=== PATIENT | female | born 1955 | race African-American/Black ===

== ENCOUNTER 2021-06-02 07:31 | Inpatient (IN) | payer OTHER ==
[~2021-06-02] VITALS: Ht 162.6 cm; Wt 181.9 kg
[2021-06-02] MEDS ORDERED: FUROSEMIDE 40MG/4ML VIAL IV ONE (08:30)
[2021-06-02 09:15] LABS: BASOPHILS % 0.6 % (0.0-2.0); EOSINOPHILS % 2.5 % (0.0-5.0); HEMATOCRIT. 40.2 % (36.0-48.0); HEMOGLOBIN. 13.3 g/dL (12.0-16.0); MEAN CORPUSCULAR HEMOGLOBIN 27.4 pg (28.0-32.0); MEAN CORPUSCULAR VOLUME 82.7 fL (81.0-99.0); MEAN PLATELET VOLUME 7.1 fl (7.4-10.4); NEUTROPHILS % 60.9 % (40.0-76.0); PLATELET 386 x1000/uL (130-400); RED BLOOD CELL COUNT 4.86 mill/uL (4.2-5.4); RED CELL DISTRIBUTION WIDTH 16.8 % (11.6-14.6)
[2021-06-02 09:21] LABS: CHLORIDE 107 mEq/L (98-107)
[2021-06-02 09:23] LABS: INR 3.4; PARTIAL THROMBOPLASTIN TIME 51.3 sec (23.4-31.0); PROTHROMBIN TIME 32.9 sec (9.6-11.0)
[2021-06-02] MEDS ORDERED: HYDROCODONE/ACETAMINOPHEN 5/325MG TABLET PO ONE (11:00)
[2021-06-02 11:34] LABS: CLARITY URINE CLOUDY (CLEAR); COLOR URINE YELLOW (YELLOW); KETONES URINE NEGATIVE (NEGATIVE); LEUKOCYTE ESTERASE URINE NEGATIVE (NEGATIVE); NITRITE URINE NEGATIVE (NEGATIVE); OCCULT BLOOD URINE 2+ (NEGATIVE); PROTEIN URINE NEGATIVE (NEGATIVE); SPECIFIC GRAVITY URINE 1.024 (1.005-1.030)
[2021-06-02] MEDS ORDERED: IPRATROPIUM/ALBUTEROL 0.5-3(2.5)MG/3ML NEB HHN PRN (13:15)
[2021-06-02] MEDS ORDERED: ACETAMINOPHEN 325MG TABLET PO PRN (13:15)
[2021-06-02] MEDS: FUROSEMIDE 100MG/10ML VIAL IVP SCH (18:15)
[2021-06-02 23:00] VITALS: BP 137/56
[2021-06-03] VITALS: BP 137/56
[2021-06-03] MEDS ORDERED: OMEP20CA14 MT (00:54)
[2021-06-03] MEDS ORDERED: WARF10TA44 MT (00:55)
[2021-06-03] MEDS ORDERED: FURO-151 PO (00:56)
[2021-06-03 04:00] VITALS: BP 128/57
[2021-06-03 05:52] LABS: BASOPHILS % 0.4 % (0.0-2.0); EOSINOPHILS % 2.5 % (0.0-5.0); HEMATOCRIT. 37.6 % (36.0-48.0); HEMOGLOBIN. 12.7 g/dL (12.0-16.0); LYMPHOCYTES % 21.8 % (20.0-50.0); MEAN CORPUSCULAR HEMOGLOBIN 28.2 pg (28.0-32.0); MEAN CORPUSCULAR VOLUME 83.7 fL (81.0-99.0); MEAN PLATELET VOLUME 7.6 fl (7.4-10.4); MONOCYTES % 10.9 % (2.0-8.0); NEUTROPHILS % 64.4 % (40.0-76.0); PLATELET 325 x1000/uL (130-400); RED CELL DISTRIBUTION WIDTH 16.6 % (11.6-14.6)
[2021-06-03 05:55] LABS: CHLORIDE 106 mEq/L (98-107)
[2021-06-03 06:21] LABS: INR 3.8; PROTHROMBIN TIME 36.5 sec (9.6-11.0)
[2021-06-03 08:00] VITALS: BP 126/59
[2021-06-03] MEDS ORDERED: PNEUMOCOCCAL 23-VAL P-SAC VAC 0.5 ML IM ONE (08:00)
[2021-06-03] MEDS: FUROSEMIDE 100MG/10ML VIAL IVP SCH (08:44)
[2021-06-03] MEDS: PANTOPRAZOLE SODIUM 40 MG/VIAL IV SCH (09:20)
[2021-06-03] MEDS ORDERED: INFLUENZA VACCINE 05/PF 0.5 ML SYRINGE IM ONE (10:00)
[2021-06-03 12:03] VITALS: BP 121/60
[2021-06-03] MEDS: LACTULOSE 20G/30ML UDC PO PRN (12:24)
[2021-06-03] MEDS ORDERED: CEFTRIAXONE 1 G PREMIX 50 ML IV SCH (13:00)
[2021-06-03] MEDS ORDERED: NALOXONE HCL 0.4MG/ML VIAL IV PRN (13:45)
[2021-06-03] MEDS ORDERED: HYDRALAZINE 20MG/ML VIAL IV PRN (13:45)
[2021-06-03] MEDS ORDERED: LORAZEPAM 2MG/ML CPJ IV PRN (13:45)
[2021-06-03] MEDS ORDERED: BISACODYL 10MG SUPP PR NR (15:00)
[2021-06-03] MEDS: CEFTRIAXONE 1,000 MG in DEXTROSE 5% WATER 50 ML IV SCH (15:15)
[2021-06-03] MEDS: DOCUSATE SODIUM SUGAR FREE 100MG/10ML UDC NG SCH (15:15)
[2021-06-03 16:00] VITALS: BP 136/66
[2021-06-03] MEDS: FUROSEMIDE 40MG/4ML VIAL IVP SCH (17:04)
[2021-06-03] MEDS: HYDROCODONE/ACETAMINOPHEN 5/325MG TABLET PO PRN ×2 (17:05→23:54)
[2021-06-03 20:00] VITALS: BP 105/55
[2021-06-03] MEDS: IPRATROPIUM/ALBUTEROL 0.5-3(2.5)MG/3ML NEB HHN SCH (21:38)
[2021-06-04] VITALS: BP 140/71
[2021-06-04] MEDS: IPRATROPIUM/ALBUTEROL 0.5-3(2.5)MG/3ML NEB HHN SCH ×4 (01:29→18:00)
[2021-06-04 04:00] VITALS: BP 132/71
[2021-06-04] MEDS: FUROSEMIDE 40MG/4ML VIAL IVP SCH ×2 (07:04→16:33)
[2021-06-04 07:19] LABS: PROTHROMBIN TIME 29.3 sec (9.6-11.0)
[2021-06-04 07:26] LABS: CHLORIDE 104 mEq/L (98-107)
[2021-06-04 07:37] LABS: LDL CHOLESTEROL 132 mg/dL (5-100)
[2021-06-04 07:38] LABS: T4 FREE 1.23 ng/dL (0.76-1.46)
[2021-06-04 07:39] LABS: HDL CHOLESTEROL 63 mg/dL (40-59)
[2021-06-04 07:56] LABS: HEMATOCRIT 37.8 % (36.0-48.0); HEMOGLOBIN 12.3 g/dL (12.0-16.0); MEAN CORPUSCULAR HEMOGLOBIN 27.3 pg (28.0-32.0); MEAN CORPUSCULAR VOLUME 83.8 fL (81.0-99.0); PLATELET 326 x1000/uL (130-400); RED BLOOD CELL COUNT 4.51 mill/uL (4.2-5.4); RED CELL DISTRIBUTION WIDTH 16.4 % (11.6-14.6)
[2021-06-04 08:00] VITALS: BP 122/66
[2021-06-04] MEDS: PANTOPRAZOLE SODIUM 40 MG/VIAL IV SCH (08:45)
[2021-06-04] MEDS: DOCUSATE SODIUM SUGAR FREE 100MG/10ML UDC NG SCH (08:45)
[2021-06-04] MEDS ORDERED: POTASSIUM CHLORIDE 20MEQ TABLET SR PO NR (08:45)
[2021-06-04] MEDS ORDERED: BISACODYL 10MG SUPP PR PRN (09:00)
[2021-06-04] MEDS ORDERED: MAGNESIUM CITRATE 300ML SOLUTION PO NR (10:00)
[2021-06-04 12:00] VITALS: BP 120/54
[2021-06-04] MEDS ORDERED: LIDOCAINE HCL 1% 20ML VIAL (Pyxis) INJ ONE (13:48)
[2021-06-04 16:00] VITALS: BP 112/53
[2021-06-04] MEDS: CEFTRIAXONE 1,000 MG in DEXTROSE 5% WATER 50 ML IV SCH (16:33)
[2021-06-04 18:10] LABS: HEPATITIS B SURFACE ANTIGEN NEGATIVE
[2021-06-04 20:00] VITALS: BP 124/60
[2021-06-04] MEDS: HYDROCODONE/ACETAMINOPHEN 5/325MG TABLET PO PRN (21:31)
[2021-06-05] VITALS: BP 135/64
[2021-06-05 04:00] VITALS: BP 120/48
[2021-06-05] MEDS: FUROSEMIDE 40MG/4ML VIAL IVP SCH ×2 (06:36→16:58)
[2021-06-05 07:03] LABS: INR 2.1; PROTHROMBIN TIME 21.4 sec (9.6-11.0)
[2021-06-05 07:18] LABS: CHLORIDE 103 mEq/L (98-107)
[2021-06-05 07:20] LABS: HEMATOCRIT 35.2 % (36.0-48.0); HEMOGLOBIN 11.6 g/dL (12.0-16.0); MEAN CORPUSCULAR HEMOGLOBIN 27.3 pg (28.0-32.0); MEAN CORPUSCULAR VOLUME 82.4 fL (81.0-99.0); PLATELET 336 x1000/uL (130-400); RED BLOOD CELL COUNT 4.27 mill/uL (4.2-5.4); RED CELL DISTRIBUTION WIDTH 16.6 % (11.6-14.6)
[2021-06-05 08:00] VITALS: BP 126/55
[2021-06-05] MEDS: IPRATROPIUM/ALBUTEROL 0.5-3(2.5)MG/3ML NEB HHN SCH ×4 (08:29→20:59)
[2021-06-05] MEDS: DOCUSATE SODIUM SUGAR FREE 100MG/10ML UDC NG SCH (08:54)
[2021-06-05] MEDS: FAMOTIDINE 20MG/2ML VIAL IV SCH (08:54)
[2021-06-05] MEDS ORDERED: POTASSIUM CHLORIDE 20MEQ TABLET SR PO NR (11:15)
[2021-06-05 12:00] VITALS: BP 136/56
[2021-06-05 16:00] VITALS: BP 136/56
[2021-06-05] MEDS: CEFTRIAXONE 1,000 MG in DEXTROSE 5% WATER 50 ML IV SCH (16:58)
[2021-06-05] MEDS: HYDROCODONE/ACETAMINOPHEN 5/325MG TABLET PO PRN (17:12)
[2021-06-05] MEDS ORDERED: WARFARIN SODIUM 7.5MG TABLET PO SCH (18:00)
[2021-06-05 20:00] VITALS: BP 124/62
[2021-06-06] VITALS (7 sets, daily range): BP systolic 126–144; BP diastolic 50–65
[2021-06-06] MEDS: FAMOTIDINE 20MG/2ML VIAL IV SCH ×3 (00:16→20:15)
[2021-06-06] MEDS: ATORVASTATIN CALCIUM 20MG TABLET PO SCH ×2 (00:16→20:13)
[2021-06-06] MEDS: IPRATROPIUM/ALBUTEROL 0.5-3(2.5)MG/3ML NEB HHN SCH ×4 (01:31→20:02)
[2021-06-06] MEDS: FUROSEMIDE 40MG/4ML VIAL IVP SCH ×2 (07:15→16:53)
[2021-06-06 08:40] LABS: HEMATOCRIT 35.4 % (36.0-48.0); HEMOGLOBIN 11.9 g/dL (12.0-16.0); MEAN CORPUSCULAR HEMOGLOBIN 27.8 pg (28.0-32.0); MEAN CORPUSCULAR VOLUME 82.7 fL (81.0-99.0); PLATELET 284 x1000/uL (130-400); RED BLOOD CELL COUNT 4.28 mill/uL (4.2-5.4); RED CELL DISTRIBUTION WIDTH 16.5 % (11.6-14.6)
[2021-06-06 08:47] LABS: CHLORIDE 105 mEq/L (98-107)
[2021-06-06] MEDS: DOCUSATE SODIUM SUGAR FREE 100MG/10ML UDC NG SCH (09:12)
[2021-06-06 10:54] LABS: INR 1.6; PROTHROMBIN TIME 16.6 sec (9.6-11.0)
[2021-06-06] MEDS: HYDROCODONE/ACETAMINOPHEN 5/325MG TABLET PO PRN (14:36)
[2021-06-06] MEDS: GUAIFENESIN 200MG/10ML SUGAR FREE UDC PO PRN (14:38)
[2021-06-06] MEDS: CEFTRIAXONE 1,000 MG in DEXTROSE 5% WATER 50 ML IV SCH (16:53)
[2021-06-06] MEDS ORDERED: MAGNESIUM CITRATE 300ML SOLUTION PO NR (17:30)
[2021-06-06] MEDS ORDERED: WARFARIN SODIUM 7.5MG TABLET PO SCH (18:00)
[2021-06-06] MEDS: ONDANSETRON HCL 4MG/2ML INJ IV PRN (19:28)
[2021-06-07] VITALS: BP 118/56
[2021-06-07] MEDS: IPRATROPIUM/ALBUTEROL 0.5-3(2.5)MG/3ML NEB HHN SCH ×4 (01:14→21:22)
[2021-06-07] MEDS: HYDROCODONE/ACETAMINOPHEN 5/325MG TABLET PO PRN ×2 (01:23→18:05)
[2021-06-07] MEDS: GUAIFENESIN 200MG/10ML SUGAR FREE UDC PO PRN (03:18)
[2021-06-07 04:00] VITALS: BP 116/55
[2021-06-07] MEDS: FUROSEMIDE 40MG/4ML VIAL IVP SCH ×2 (06:15→17:50)
[2021-06-07] MEDS: DOCUSATE SODIUM SUGAR FREE 100MG/10ML UDC NG SCH (08:57)
[2021-06-07] MEDS: FAMOTIDINE 20MG/2ML VIAL IV SCH ×2 (08:57→22:29)
[2021-06-07 10:42] LABS: HEMATOCRIT 35.4 % (36.0-48.0); MEAN CORPUSCULAR HEMOGLOBIN 28.5 pg (28.0-32.0); MEAN CORPUSCULAR VOLUME 83.9 fL (81.0-99.0); PLATELET 318 x1000/uL (130-400); RED BLOOD CELL COUNT 4.22 mill/uL (4.2-5.4); RED CELL DISTRIBUTION WIDTH 16.6 % (11.6-14.6)
[2021-06-07 10:50] LABS: CHLORIDE 103 mEq/L (98-107)
[2021-06-07] MEDS ORDERED: GUAIFENESIN 600MG ER TABLET PO NR (11:00)
[2021-06-07 11:26] LABS: INR 1.5; PROTHROMBIN TIME 15.7 sec (9.6-11.0)
[2021-06-07 12:00] VITALS: BP 134/86
[2021-06-07] MEDS: CEFTRIAXONE 1,000 MG in DEXTROSE 5% WATER 50 ML IV SCH (15:42)
[2021-06-07] MEDS: ENOXAPARIN 150MG/ML SYR SUBCUT SCH (15:42)
[2021-06-07 16:00] VITALS: BP 128/67
[2021-06-07] MEDS ORDERED: WARFARIN SODIUM 4MG TABLET PO NR (18:00)
[2021-06-07] MEDS: ONDANSETRON HCL 4MG/2ML INJ IV PRN (18:05)
[2021-06-07 20:00] VITALS: BP 129/49
[2021-06-07] MEDS: GUAIFENESIN 600MG ER TABLET PO SCH (22:29)
[2021-06-07] MEDS: ATORVASTATIN CALCIUM 20MG TABLET PO SCH (22:29)
[2021-06-08] VITALS: BP 126/47
[2021-06-08] MEDS: IPRATROPIUM/ALBUTEROL 0.5-3(2.5)MG/3ML NEB HHN SCH ×4 (01:44→20:57)
[2021-06-08 04:00] VITALS: BP 117/60
[2021-06-08] MEDS: ENOXAPARIN 150MG/ML SYR SUBCUT SCH ×2 (06:33→17:51)
[2021-06-08] MEDS: FUROSEMIDE 40MG/4ML VIAL IVP SCH ×2 (06:33→17:51)
[2021-06-08 07:14] LABS: HEMATOCRIT 35.7 % (36.0-48.0); HEMOGLOBIN 11.9 g/dL (12.0-16.0); MEAN CORPUSCULAR HEMOGLOBIN 27.9 pg (28.0-32.0); MEAN CORPUSCULAR VOLUME 83.8 fL (81.0-99.0); PLATELET 304 x1000/uL (130-400); RED BLOOD CELL COUNT 4.26 mill/uL (4.2-5.4); RED CELL DISTRIBUTION WIDTH 16.6 % (11.6-14.6)
[2021-06-08 07:20] LABS: INR 1.5; PROTHROMBIN TIME 15.8 sec (9.6-11.0)
[2021-06-08] MEDS: DOCUSATE SODIUM SUGAR FREE 100MG/10ML UDC NG SCH (09:29)
[2021-06-08] MEDS: GUAIFENESIN 600MG ER TABLET PO SCH ×2 (09:30→20:47)
[2021-06-08] MEDS: FAMOTIDINE 20MG/2ML VIAL IV SCH ×2 (09:30→20:46)
[2021-06-08 12:00] VITALS: BP 141/55
[2021-06-08 16:00] VITALS: BP 136/55
[2021-06-08] MEDS: ONDANSETRON HCL 4MG/2ML INJ IV PRN (16:12)
[2021-06-08] MEDS: NYSTATIN POWDER 15GM TOP SCH (16:14)
[2021-06-08] MEDS ORDERED: WARFARIN SODIUM 3MG TABLET PO SCH (18:00)
[2021-06-08 20:00] VITALS: BP 125/56
[2021-06-08] MEDS: ATORVASTATIN CALCIUM 20MG TABLET PO SCH (20:46)
[2021-06-08] MEDS: HYDROCODONE/ACETAMINOPHEN 5/325MG TABLET PO PRN (20:49)
[2021-06-09] VITALS: BP 144/67
[2021-06-09] MEDS: IPRATROPIUM/ALBUTEROL 0.5-3(2.5)MG/3ML NEB HHN SCH ×4 (01:06→21:05)
[2021-06-09 04:00] VITALS: BP 139/56
[2021-06-09] MEDS: ENOXAPARIN 150MG/ML SYR SUBCUT SCH ×2 (06:51→19:03)
[2021-06-09] MEDS: FUROSEMIDE 40MG/4ML VIAL IVP SCH ×2 (06:51→16:32)
[2021-06-09] MEDS: GUAIFENESIN 200MG/10ML SUGAR FREE UDC PO PRN (07:07)
[2021-06-09 08:59] LABS: INR 1.6; PROTHROMBIN TIME 16.6 sec (9.6-11.0)
[2021-06-09 09:30] VITALS: BP 130/50
[2021-06-09] MEDS: FAMOTIDINE 20MG/2ML VIAL IV SCH ×2 (10:54→21:39)
[2021-06-09] MEDS: GUAIFENESIN 600MG ER TABLET PO SCH ×2 (10:54→21:39)
[2021-06-09] MEDS: DOCUSATE SODIUM SUGAR FREE 100MG/10ML UDC NG SCH (10:54)
[2021-06-09] MEDS: NYSTATIN POWDER 15GM TOP SCH ×3 (10:54→16:32)
[2021-06-09 12:00] VITALS: BP 119/55
[2021-06-09 16:00] VITALS: BP 135/67
[2021-06-09] MEDS: ONDANSETRON HCL 4MG/2ML INJ IV PRN (16:32)
[2021-06-09] MEDS ORDERED: WARFARIN SODIUM 10MG TABLET PO SCH (18:00)
[2021-06-09] MEDS: HYDROCODONE/ACETAMINOPHEN 5/325MG TABLET PO PRN (19:03)
[2021-06-09 20:00] VITALS: BP 125/59
[2021-06-09] MEDS: ATORVASTATIN CALCIUM 20MG TABLET PO SCH (21:39)
[2021-06-09] MEDS: LACTULOSE 20G/30ML UDC PO PRN (21:39)
[2021-06-10] VITALS: BP 130/53
[2021-06-10] MEDS: IPRATROPIUM/ALBUTEROL 0.5-3(2.5)MG/3ML NEB HHN SCH ×4 (01:04→22:13)
[2021-06-10 04:00] VITALS: BP 137/47
[2021-06-10] MEDS: GUAIFENESIN 200MG/10ML SUGAR FREE UDC PO PRN ×2 (04:06→13:07)
[2021-06-10 05:40] LABS: INR 1.6; PROTHROMBIN TIME 16.6 sec (9.6-11.0)
[2021-06-10] MEDS: ONDANSETRON HCL 4MG/2ML INJ IV PRN ×2 (06:09→23:56)
[2021-06-10] MEDS: ENOXAPARIN 150MG/ML SYR SUBCUT SCH ×2 (06:09→18:00)
[2021-06-10] MEDS: FUROSEMIDE 40MG/4ML VIAL IVP SCH ×2 (06:17→17:58)
[2021-06-10 08:00] VITALS: BP 118/62
[2021-06-10] MEDS: FAMOTIDINE 20MG/2ML VIAL IV SCH ×2 (09:22→21:42)
[2021-06-10] MEDS: GUAIFENESIN 600MG ER TABLET PO SCH ×2 (09:22→21:42)
[2021-06-10] MEDS: DOCUSATE SODIUM SUGAR FREE 100MG/10ML UDC NG SCH (09:22)
[2021-06-10] MEDS: NYSTATIN POWDER 15GM TOP SCH ×2 (09:23→17:57)
[2021-06-10 12:00] VITALS: BP 134/54
[2021-06-10 16:00] VITALS: BP 138/57
[2021-06-10] MEDS ORDERED: WARFARIN SODIUM 10MG TABLET PO NR (18:00)
[2021-06-10 20:00] VITALS: BP 121/49
[2021-06-10] MEDS: ATORVASTATIN CALCIUM 20MG TABLET PO SCH (21:42)
[2021-06-11] VITALS (7 sets, daily range): BP systolic 110–132; BP diastolic 51–70
[2021-06-11] MEDS: IPRATROPIUM/ALBUTEROL 0.5-3(2.5)MG/3ML NEB HHN SCH ×4 (01:51→21:38)
[2021-06-11] MEDS: ENOXAPARIN 150MG/ML SYR SUBCUT SCH ×2 (05:53→17:31)
[2021-06-11] MEDS: FUROSEMIDE 40MG/4ML VIAL IVP SCH ×2 (06:06→17:29)
[2021-06-11] MEDS: GUAIFENESIN 200MG/10ML SUGAR FREE UDC PO PRN ×2 (06:51→20:25)
[2021-06-11 07:16] LABS: INR 1.7; PROTHROMBIN TIME 17.3 sec (9.6-11.0)
[2021-06-11] MEDS ORDERED: PANTOPRAZOLE 40MG DR TABLET PO SCH (09:00)
[2021-06-11] MEDS ORDERED: MAGNESIUM CITRATE 300ML SOLUTION PO SCH (10:00)
[2021-06-11] MEDS: DOCUSATE SODIUM SUGAR FREE 100MG/10ML UDC NG SCH (10:09)
[2021-06-11] MEDS: ONDANSETRON HCL 4MG/2ML INJ IV PRN ×2 (10:10→17:30)
[2021-06-11] MEDS: GUAIFENESIN 600MG ER TABLET PO SCH ×2 (10:10→20:37)
[2021-06-11] MEDS: NYSTATIN POWDER 15GM TOP SCH ×3 (10:16→17:00)
[2021-06-11] MEDS ORDERED: HYDRALAZINE 10 MG in DEXTROSE 5% WATER 50 ML IV PRN (16:00)
[2021-06-11] MEDS ORDERED: WARFARIN SODIUM 10MG TABLET PO SCH (18:00)
[2021-06-11] MEDS: ATORVASTATIN CALCIUM 20MG TABLET PO SCH (20:20)
[2021-06-11] MEDS: HYDROCODONE/ACETAMINOPHEN 5/325MG TABLET PO PRN (20:26)
[2021-06-12] VITALS: BP 147/58
== END 2021-06-12 00:36 | DRG 602 ==
LOC: ER 07:31 → MICUSO 10:56 → 7EST 20:24 → 6EST 06-09 09:00
PROVIDERS: ADMIT Internal Medicine; ATTEND Internal Medicine
PROC: 02HV33Z Insertion of Infusion Device into Superior Vena Cava, Percutaneous Approach (ICD-10-PCS; principal; 2021-06-04)
PROC: B548ZZA Ultrasonography of Superior Vena Cava, Guidance (ICD-10-PCS; 2021-06-04)
DX: L03.116 Cellulitis of left lower limb (principal); J96.20 Acute and chronic respiratory failure, unspecified whether with hypoxia or hypercapnia; I50.33 Acute on chronic diastolic (congestive) heart failure; E44.1 Mild protein-calorie malnutrition; D68.9 Coagulation defect, unspecified; E66.2 Morbid (severe) obesity with alveolar hypoventilation; J44.1 Chronic obstructive pulmonary disease with (acute) exacerbation; L97.829 Non-pressure chronic ulcer of other part of left lower leg with unspecified severity; Z68.44 Body mass index [BMI] 60.0-69.9, adult; L03.115 Cellulitis of right lower limb; I89.0 Lymphedema, not elsewhere classified; E11.9 Type 2 diabetes mellitus without complications; I87.8 Other specified disorders of veins; Z96.659 Presence of unspecified artificial knee joint; T50.1X6A Underdosing of loop [high-ceiling] diuretics, initial encounter; B36.8 Other specified superficial mycoses; I11.0 Hypertensive heart disease with heart failure; Z20.822 Contact with and (suspected) exposure to COVID-19; Z98.51 Tubal ligation status; Z86.711 Personal history of pulmonary embolism; Z99.81 Dependence on supplemental oxygen; Z79.01 Long term (current) use of anticoagulants; Z91.14 Patient's other noncompliance with medication regimen; Z98.891 History of uterine scar from previous surgery; Y92.89 Other specified places as the place of occurrence of the external cause; Z71.3 Dietary counseling and surveillance
CPT/HCPCS: 36415; 71045; 76937; 80048; 80053; 80061; 81003; 82962; 83036; 83880; 84439; 84443; 84484; 85025; 85027; 86705; 86709; 86803; 87340; 87426; 90686; 90732; 93005; 93306; 93970; 94640; 97110; 97162; 97166; 97530; 97535; 99285; A6261; C1725; C9113; J0696; J1642; J1650; J1940; J2405; J3490; J7060; U0003; U0005; A4315